=== PATIENT | male | born 1995 | race Caucasian/White ===

== ENCOUNTER 2018-09-12 17:17 | Inpatient (IN) | payer MEDICAID ==
[~2018-09-12] VITALS: Ht 180.3 cm; Wt 95.7 kg
[2018-09-12 17:27] VITALS: BP 138/100
--- NOTE | 2018-09-12 17:50 | NUR ---
PT PLACED IN WHEELCHAIR AND SEAT BELT APPLIED, AND ROLLED TO CHAIR C STATION
--- NOTE | 2018-09-12 18:12 | NUR ---
Patient transferred to bed 6 for further care. RN re-evaluating patient at bedside.
--- NOTE | 2018-09-12 18:35 | NUR ---
C/O ALCOHOL WITHDRAWAL. PT STATES THAT HE SPENT PREVIOUS 7 DAYS IN [facility] DRINKNG EVERYDAY, WHEN HE WOKE UP TODAY HE HAD TREMORS, ANXIETY, AND VISUAL HALLUCINATIONS, UNTIL HE DRANK AGAIN. LAST DRINK WAS 2 SHOTS OF VODKA 2 HOURS AGO. PT DENIES ANY PAIN, AGITATION, TREMORS, OR HALLUCINATIONS AT THIS TIME. PT DENIES DRUG USE. SINUS TACHYCARDIA, NO ECTOPIES PRESENT. DENIES CP/SOB AT THIS TIME. ABLE TO AMBULATE WITH STEADY GAIT. PLACED ON FULL MONITOR, BED LOCKED IN LOW POSITION, WILL CONTINUE TO MONITOR CLOSELY.
--- NOTE | 2018-09-12 19:22 | NUR ---
REPORT REC'D FROM ESMS RN
--- NOTE | 2018-09-12 19:50 | NUR ---
EDMD AT BEDSIDE
--- NOTE | 2018-09-12 19:54 | NUR ---
CIWA SCORED 5 POINTS, EDMD AWARE.
[2018-09-12] MEDS ORDERED: NACL 0.9% 1,000 ML IV ONE (19:55)
[2018-09-12] MEDS ORDERED: LORazepam 2 MG/ML VIAL IVP ONE (19:55)
--- NOTE | 2018-09-12 20:00 | NUR ---
PT REFUSING TO GIVE URINE AT THIS TIME EDMD AWARE
[2018-09-12 20:22] LABS: BASOPHILS % (AUTO) 0.9 % (0.0-2.0); EOSINOPHILS % (AUTO) 0.1 % (0.0-4.0); HEMATOCRIT 43.8 % (36-52); HEMOGLOBIN 15.1 g/dL (12.0-18.0); LYMPHOCYTES # (AUTO) 0.9 K/uL (2.0-11.5); LYMPHOCYTES % (AUTO) 16.6 % (20.5-51.1); MEAN CORPUSCULAR HEMOGLOBIN 31 pg (27-31); MEAN CORPUSCULAR HGB CONC 34 g/dL (33-37); MEAN CORPUSCULAR VOLUME 90.2 fL (80-94); MONOCYTES # (AUTO) 0.3 K/uL (0.8-1.0); NEUTROPHILS # (AUTO) 4.3 K/uL (1.8-7.7); NEUTROPHILS % (AUTO) 76.4 % (42.2-75.2); PLATELET COUNT (AUTO) 145 K/uL (140-450); RED BLOOD CELL COUNT(AUTO) 4.86 MIL/uL (4.20-6.10); RED CELL DISTRIBUTION WIDTH 13.8 % (11.6-13.7); WHITE BLOOD COUNT (AUTO) 5.6 K/uL (4.8-10.8)
--- NOTE | 2018-09-12 20:24 | NUR ---
pt states he feels much calmer after the ativan edmd made aware.
[2018-09-12 20:32] LABS: ANION GAP 15.5 (8-16); CREATININE 0.9 mg/dL (0.7-1.3); POTASSIUM 3.5 mmol/L (3.5-5.1)
[2018-09-12 20:39] LABS: ALBUMIN 3.5 g/dL (3.4-5.0); TOTAL BILIRUBIN 0.6 mg/dL (0.0-1.0)
--- NOTE | 2018-09-12 21:10 | NUR ---
PT AMBULATING TO RESTROOM
--- NOTE | 2018-09-12 21:52 | NUR ---
PT STILL UNABLE TO PROVIDE URINE, EDMD AWARE.
[2018-09-12] MEDS ORDERED: MULTIVITAMIN-12 10 ML in NACL 0.9% 1,000 ML IV ONE (23:22)
[2018-09-12] MEDS ORDERED: MAG SULF 2000 MG/WATER PREMIX 50 ML IV ONE (23:25)
[2018-09-12] MEDS ORDERED: DOCUSATE SODIUM 100 MG GELCAP PO PRN (23:25)
[2018-09-12] MEDS ORDERED: THIAMINE 200 MG/2 ML VIAL IM ONE (23:25)
[2018-09-12] MEDS ORDERED: chlordiazePOXIDE 25 MG CAP PO SCH (23:25)
[2018-09-12] MEDS ORDERED: ACETAMINOPHEN 325 MG TAB PO PRN (23:25)
[2018-09-12] MEDS ORDERED: FOLIC ACID 5 MG/ML SYR IM ONE (23:25)
[2018-09-12] MEDS ORDERED: ZOLPIDEM 5 MG TAB PO PRN (23:25)
[2018-09-12] MEDS ORDERED: THIAMINE 100 MG TAB PO STA (23:41)
[2018-09-12] MEDS ORDERED: chlordiazePOXIDE 25 MG CAP PO STA (23:44)
--- NOTE | 2018-09-12 23:50 | NUR ---
Patient arrived in unit via gurney, accompanied by two INFORMATICA MDM DEVELOPER's; patient is A/Ox4, able to make needs known. Patient was able to ambulate from gurney to bed without assistance; introduced self, updated board, oriented patient to room and hospital environment. Chief complaint of shaking and nausea x 1 day; DX is ETOH withdrawal. No SOB or distress noted, on room air. IV site on left forearm, 20 gauge, intact. Skin intact. Vitals signs upon admission are as follows: BP 143/87, RR 16, HR 110, Temp 98.6, O2Sat 97% on room air. Bed in the lowest position, call light within reach. Initial assessment done. Will continue to monitor.
[2018-09-13] VITALS: BP 143/87
--- NOTE | 2018-09-13 00:11 | NUR ---
Patient will be admitted to care of DR ONTIVEROS. Admited to [facility] Will go to room 126b Belongings list completed. Report to RICHARD JON
[2018-09-13] MEDS ORDERED: MULTIVITAMIN-12 10 ML in NACL 0.9% 1,000 ML IV ONE (00:28)
[2018-09-13] MEDS ORDERED: FOLIC ACID 5 MG/ML SYR IM ONE (00:30)
[2018-09-13] MEDS ORDERED: chlordiazePOXIDE 25 MG CAP PO SCH (00:30)
[2018-09-13] MEDS ORDERED: THIAMINE 200 MG/2 ML VIAL IM ONE (00:30)
[2018-09-13] MEDS ORDERED: MAG SULF 2000 MG/WATER PREMIX 50 ML IV ONE (00:30)
[2018-09-13] MEDS ORDERED: THIAMINE 100 MG TAB PO ONE (00:30)
[2018-09-13 00:34] LABS: MAGNESIUM 1.8 mg/dL (1.8-2.4); PHOSPHORUS 4.1 mg/dL (2.5-4.9); PROTHROMBIN TIME 9.9 secs (10.8-13.4); THYROID STIMULATING HORMONE 0.85 uIU/mL (0.34-3.74)
[2018-09-13] MEDS: NACL 0.9% 1,000 ML IV SCH ×3 (01:43→15:24)
[2018-09-13] MEDS ORDERED: MAG SULF 2000 MG/WATER PREMIX 50 ML IV SCH (02:00)
[2018-09-13] MEDS ORDERED: MULTIVITAMIN 1 TAB PO SCH (02:00)
[2018-09-13] MEDS ORDERED: FOLIC ACID 1 MG TAB PO SCH (02:00)
--- NOTE | 2018-09-13 02:00 | NUR ---
Checks made on patient; patient watching TV. No distress noted.
[2018-09-13] MEDS ORDERED: LORazepam 2 MG/ML VIAL IM/IVP SCH (02:15)
[2018-09-13] MEDS: ONDANSETRON 4 MG/2 ML VIAL IM/IVP PRN ×2 (03:35→12:24)
--- NOTE | 2018-09-13 03:40 | NUR ---
Patient vomited 400mL clear, yellow liquid. Administered PRN Zofran. Will continue to monitor.
[2018-09-13 04:00] VITALS: BP 146/91
[2018-09-13] MEDS: chlordiazePOXIDE 25 MG CAP PO SCH ×3 (04:50→20:36)
--- NOTE | 2018-09-13 06:13 | NUR ---
Checked on patient; patient vomited 50mL clear liquid. Asked patient if he was ok, patient stated he felt better after vomiting. Will continue to monitor.
--- NOTE | 2018-09-13 07:05 | NUR ---
Endorsed patient to AM shift RN for continuity of care; patient in stable condition.
--- NOTE | 2018-09-13 07:06 | NUR ---
PT IS AWAKE AND ORIENTED. PT IS STILL VERY SHAKY. STILL NAUSEATED. CAN'T KEEP ANYTHING DOWN. DURING THE FREIGHT TRAFFIC CONSULTANT OVER 1000ML EMESIS. PT IS BEDREST, UNSTEADY GAIT D/T THE SHAKES. SKIN INTACT. LBM 09/11. IV ON L FA 20G NS AT 120ML/HR. PLAN FOR TODAY: KEEP PT SAFE, FREE OF FALLS, NO SEIZURES. KEEP HYDRATED AND NO MORE VOMITING.
[2018-09-13 08:00] VITALS: BP 160/97
--- NOTE | 2018-09-13 08:39 | NUR ---
PATIENT HAS BEEN SCREENED AND CATEGORIZED MODERATE NUTRITION RISK. PATIENT WILL BE SEEN WITHIN 3-5 DAYS OF ADMISSION. 09/15/18-09/17/[address]
--- NOTE | 2018-09-13 08:55 | NUR ---
ADMINISTERED BANANA BAG. PT TOLERATING WELL. WILL CONTINUE MONITOR PT.
[2018-09-13] MEDS ORDERED: MULTIVITAMIN/MINERALS 1 TAB PO SCH (09:00)
[2018-09-13] MEDS ORDERED: MULTIVITAMIN-12 10 ML, THIAMINE 100 MG, MAGNESIUM SULFATE 50% 2,000 MG, FOLIC ACID 1 MG... IV SCH ×5 (09:00)
[2018-09-13 09:20] LABS: BASOPHILS # (AUTO) 0.1 K/uL (0.00-0.22); BASOPHILS % (AUTO) 0.9 % (0.0-2.0); HEMATOCRIT 40.3 % (36-52); HEMOGLOBIN 13.8 g/dL (12.0-18.0); LYMPHOCYTES # (AUTO) 0.4 K/uL (2.0-11.5); MEAN CORPUSCULAR HEMOGLOBIN 31 pg (27-31); MEAN CORPUSCULAR HGB CONC 34 g/dL (33-37); MEAN CORPUSCULAR VOLUME 90.5 fL (80-94); MONOCYTES # (AUTO) 0.6 K/uL (0.8-1.0); MONOCYTES % (AUTO) 8.7 % (1.7-9.3); NEUTROPHILS # (AUTO) 6.2 K/uL (1.8-7.7); NEUTROPHILS % (AUTO) 84.4 % (42.2-75.2); PLATELET COUNT (AUTO) 128 K/uL (140-450); RED BLOOD CELL COUNT(AUTO) 4.46 MIL/uL (4.20-6.10); RED CELL DISTRIBUTION WIDTH 13.3 % (11.6-13.7); WHITE BLOOD COUNT (AUTO) 7.3 K/uL (4.8-10.8)
[2018-09-13 09:41] LABS: ANION GAP 15.9 (8-16); CARBON DIOXIDE 25.8 mmol/L (21-32); CREATININE 0.8 mg/dL (0.7-1.3); POTASSIUM 3.7 mmol/L (3.5-5.1)
[2018-09-13 09:52] LABS: CHOL/HDL RATIO 1.9 (1-4.5); MAGNESIUM 1.8 mg/dL (1.8-2.4); PHOSPHORUS 3.7 mg/dL (2.5-4.9)
[2018-09-13 12:00] VITALS: BP 149/106
--- NOTE | 2018-09-13 12:30 | NUR ---
ADMINISTERED LIBRIUM. PT TOLERATED WELL. EATING LUNCH. ADMINISTERED ZOFRAN 30 MIN PRIOR TO HELP WITH NAUSEA.
[2018-09-13 13:45] LABS: APPEARANCE,URINE CLEAR (CLEAR); BILIRUBIN,URINE 1+ (NEGATIVE); BLOOD, URINE TRACE-I (NEGATIVE); COLOR,URINE DARK YELLOW (YELLOW); LEUKOCYTE ESTERASE ,URINE NEGATIVE (NEGATIVE); NITRITE, URINE NEGATIVE (NEGATIVE); PH,URINE 6.5 (5.0-9.0); UGLUCOSE NEGATIVE (NEGATIVE)
[2018-09-13 13:50] LABS: BARBITURATE, URINE NEG. ng/ml (NEG <=200); BENZODIAZEPINE, URINE NEG. ng/mL (NEG <=200); CANNABINOID, URINE POS. ng/mL (NEG <=50); COCAINE, URINE POS. ng/mL (NEG <=300); OPIATE, URINE NEG. ng/mL (NEG <=2000); PHENCYCLIDINE SCREEN,URINE NEG. ng/mL (NEG <=25)
[2018-09-13 13:56] LABS: WBC,URINE 0-5 /HPF (0-5)
--- NOTE | 2018-09-13 15:20 | NUR ---
PT BETTER WITH SHAKING. PER PT, SEEING HALLUCINATIONS. WILL NOTIFY .
[2018-09-13 16:00] VITALS: BP 147/104
[2018-09-13] MEDS ORDERED: LORazepam 1 MG TAB PO ONE (18:05)
--- NOTE | 2018-09-13 19:13 | NUR ---
ENDORSED PT TO THE MEASUREMENT SUPERVISOR NURSE AT BEDSIDE FOR CONTINUITY OF CARE. PT IS IN STABLE CONDITION.
--- NOTE | 2018-09-13 19:15 | NUR ---
RECEIVED PT FROM LORAINE JON PT DX ETOH AAOX4 VERBALIZED NEEDED ON BED REST USING URINAL , ON TELEMETRY SR DENIES ANY PAIN AT THIS TIME IV ON LEFT ARM INFUSING WELL INITIAL ASSESSMENT DONE
[2018-09-13 20:00] VITALS: BP 138/98
--- NOTE | 2018-09-13 21:30 | NUR ---
PT RESTING ON BED DENIES ANY PAIN ON TELEMETRY SR, NOT DISTRESS NOTED
[2018-09-13] MEDS ORDERED: LORazepam 1 MG TAB PO SCH (22:00)
[2018-09-13] MEDS ORDERED: LACTULOSE 20 GM/30 ML UDC PO SCH (22:00)
--- NOTE | 2018-09-13 23:31 | NUR ---
PT SLEEPING WELL AFTER ATIVAN GIVEN NOT DISTRESS NOTED ON TELEMETRY SR
[2018-09-14] VITALS: BP 133/91
[2018-09-14] MEDS: NACL 0.9% 1,000 ML IV SCH ×3 (00:22→17:02)
--- NOTE | 2018-09-14 01:00 | NUR ---
PT ON TELEMETRY SR, NOT DISTRESS NOTED IV ON LEFT ARM INFUSING WELL DENIES ANY PAIN
[2018-09-14 04:00] VITALS: BP 138/97
--- NOTE | 2018-09-14 04:00 | NUR ---
DERICK CHANGED VOIDING WELL ON TELE SR PT VERBALIZED TO FEEL BETTER
[2018-09-14] MEDS: chlordiazePOXIDE 25 MG CAP PO SCH ×3 (05:40→20:40)
--- NOTE | 2018-09-14 06:17 | NUR ---
AFTER LIBRIUM GIVEN PT IS SLEEPING WELL NOT DISTRESS NOTED ON TELEMETRY SR . PT WILL BE ENDORSED TO DAY SHIFT NURSE FOR CONTINUITY OF CARE
[2018-09-14 06:28] LABS: BASOPHILS # (AUTO) 0.1 K/uL (0.00-0.22); EOSINOPHILS # (AUTO) 0.1 K/uL (0-0.4); EOSINOPHILS % (AUTO) 1.2 % (0.0-4.0); HEMATOCRIT 39.6 % (36-52); HEMOGLOBIN 13.5 g/dL (12.0-18.0); LYMPHOCYTES % (AUTO) 17.7 % (20.5-51.1); MEAN CORPUSCULAR HEMOGLOBIN 31 pg (27-31); MEAN CORPUSCULAR HGB CONC 34 g/dL (33-37); MEAN CORPUSCULAR VOLUME 91.4 fL (80-94); MONOCYTES # (AUTO) 0.5 K/uL (0.8-1.0); MONOCYTES % (AUTO) 9.5 % (1.7-9.3); NEUTROPHILS # (AUTO) 3.9 K/uL (1.8-7.7); NEUTROPHILS % (AUTO) 70.6 % (42.2-75.2); PLATELET COUNT (AUTO) 107 K/uL (140-450); RED BLOOD CELL COUNT(AUTO) 4.34 MIL/uL (4.20-6.10); RED CELL DISTRIBUTION WIDTH 13.1 % (11.6-13.7); WHITE BLOOD COUNT (AUTO) 5.5 K/uL (4.8-10.8)
[2018-09-14 06:32] LABS: ANION GAP 11.1 (8-16); CARBON DIOXIDE 29.4 mmol/L (21-32); CREATININE 0.8 mg/dL (0.7-1.3); POTASSIUM 3.5 mmol/L (3.5-5.1)
[2018-09-14 06:36] LABS: MAGNESIUM 2.1 mg/dL (1.8-2.4); PHOSPHORUS 3.3 mg/dL (2.5-4.9)
[2018-09-14 06:38] LABS: ALBUMIN 3.1 g/dL (3.4-5.0); BILIRUBIN,DIRECT 0.6 mg/dL (0.0-0.3); TOTAL BILIRUBIN 1.6 mg/dL (0.0-1.0)
--- NOTE | 2018-09-14 07:00 | NUR ---
RECEIVED BEDSIDE REPORT FROM RAIL CAR DRIVER NURSE. PATIENT IS AWAKE, ALERT AND ORIENTEDX4. NO SIGNS OF DISTRESS ON RA. SKIN IS INTACT. PATIENT HAS WEAKNESS, AMBULATE W ASSIST. FALL RISK PROTOCOL IN PLACE. TELE MONITOR IN PLACE. IV ON L FA 20G INFUSING NS AT 120. CLEAN,DRY AND INTACT. PATIENT ABLE TO MAKE NEEDS KNOWN. SEIZURE PRECAUTIONS. BED IN LOW POSITION. CALL LIGHT WITHIN REACH
[2018-09-14 08:00] VITALS: BP 137/96
[2018-09-14 08:08] LABS: T4 (THYROXINE) 6.5 ug/dL (4.5-12.0)
--- NOTE | 2018-09-14 09:41 | NUR ---
ASKED DR MONAHAN WHY PATIENT IS NPO NOW. SHE SAID SHE WILL ASK DR BURGESS AND THEY WILL LET ME KNOW. PATIENT SAYS ITS OK BECAUSE HE IS NOT REALLY HUNGRY AT THIS TIME
[2018-09-14] MEDS: ATORVASTATIN 20 MG TAB PO SCH (09:48)
[2018-09-14] MEDS ORDERED: MULTIVITAMIN-12 10 ML, THIAMINE 100 MG, MAGNESIUM SULFATE 50% 2,000 MG, FOLIC ACID 1 MG... IV SCH ×5 (10:00)
--- NOTE | 2018-09-14 10:04 | NUR ---
ADMINISTERED MEDS. PATIENT TOLERATED WELL. EDUCATED ON SIDE EFFECTS. PATIENT WANTS TO SHOWER. PATIENT STOOD UP W ASSISTANCE AND TOO UNSTEADY TO SHOWER. GAVE HIM BED BATH SUPPLIES. STUDENT NURSE WILL CHANGE LINENS WHEN PATIENT IS DONE. PATIENT SAID HE WILL NOT GET UP W ASSISTANCE AND WILL CALL WHEN HE IS DONE
--- NOTE | 2018-09-14 11:00 | NUR ---
PATIENT FEELING BETTER AFTER A BED BATH. PATIENT ATTEMPTING TO EAT AT THIS TIME. WILL CONTINUE TO MONITOR THE PATIENT
[2018-09-14 12:00] VITALS: BP 149/99
--- NOTE | 2018-09-14 13:07 | NUR ---
ADMINISTERED [facility] MED. PATIENT EDUCATED ON SIDE EFFECTS. TOLERATED WELL. WILL CONTINUE TO MONITOR THE PATIENT. TELE MONITOR REMOVED PER ORDER FOR TRANSFER TO [facility]
--- NOTE | 2018-09-14 14:36 | NUR ---
PATIENT SITTING IN BED WATCHING TV. NO SIGNS OF DISTRESS. WILL CONTINUE TO MONITOR THE PATIENT.
[2018-09-14 16:00] VITALS: BP 143/92
--- NOTE | 2018-09-14 16:50 | NUR ---
PATIENT IS WATCHING TV. NO SIGNS OF DISTRESS. WILL CONTINUE TO MONITOR THE PATIENT.
--- NOTE | 2018-09-14 17:28 | NUR ---
PATIENT IS TAKING A SHOWER. IV COVERED. WILL CONTINUE TO MONITOR THE PATIENT
--- NOTE | 2018-09-14 19:00 | NUR ---
IV NOT WORKING. REMOVED, TIP INTACT. NEW IV PLACED ON L HAND 22G
--- NOTE | 2018-09-14 19:17 | NUR ---
GAVE BEDSIDE REPORT TO ANIMAL PATHOLOGIST NURSE. PATIENT ENDORSED IN STABLE CONDITION
--- NOTE | 2018-09-14 19:18 | NUR ---
RECD. RESTING IN BED, AWAKE, A/OX4. WATCHING TV. RESPIRATION EVEN AND UNLABORED. BANANA BAG INFUSING AT 100 ML/HR, LEFT FOREARM G20. NOT FEELING NAUSEATED, STATED FEELING MUCH BETTER. PLAN OF CARE FOR THE SHIFT DISCUSSED. VERBALIZED UNDERSTANDING. DENIES PAIN 0/10.
[2018-09-14 20:00] VITALS: BP 130/86
--- NOTE | 2018-09-14 20:40 | NUR ---
WANT TO SLEEP EARLY, UNABLE TO SLEEP MUCH LAST NIGHT. MEDICATED WITH AMBIEN 5 MG. PO ORDERED.
--- NOTE | 2018-09-14 21:40 | NUR ---
STILL AWAKE WATCHING TV.
--- NOTE | 2018-09-14 22:30 | NUR ---
SLEEPING COMFORTABLY IN BED.
--- NOTE | 2018-09-14 23:24 | NUR ---
Patient's Plan of Care was discussed and reviewed with FLOYD: CARLOS
[2018-09-15] VITALS: BP 128/84
--- NOTE | 2018-09-15 00:30 | NUR ---
AWAKE, WANTS ANOTHER SLEEPING PILL, UNABLE TO SLEEP STRAIGHT. WILL INFORM .
--- NOTE | 2018-09-15 01:00 | NUR ---
DR. MCLAUGHLIN INFORMED PATIENT WANTS ANOTHER SLEEPING PILL. DID NOT ORDER ANOTHER PILL.
[2018-09-15] MEDS: NACL 0.9% 1,000 ML IV SCH ×2 (01:35→09:42)
--- NOTE | 2018-09-15 01:35 | NUR ---
PATIENT RESTING COMFORTABLY SLEEPING IN BED.
[2018-09-15] MEDS: chlordiazePOXIDE 25 MG CAP PO SCH ×2 (04:45→12:12)
--- NOTE | 2018-09-15 04:45 | NUR ---
MEDICATED WITH LIBRIUM ORDERED. DENIES PAIN 0/10.
--- NOTE | 2018-09-15 06:40 | NUR ---
RESTING COMFORTABLY IN BED, VERBALIZED EAGERNESS TO GO HOME TODAY. CONDITION REMAIN STABLE. IMPROVEMENT NOTED IN PATIENT'S GAIT, STEADY. WILL ENDORSE TO AM NURSE FOR CONTINUITY OF CARE.
--- NOTE | 2018-09-15 07:05 | NUR ---
ENDORSED TO AM SHIFT NURSE FOR CONTINUITY OF CARE.
--- NOTE | 2018-09-15 07:10 | NUR ---
RECEIVED PT FROM PRECISION ASSEMBLER BENCH NURSECARLOS, PT IS AWAKE AND LYING ON THE BED, AOX4, CONVERSANT, PT HAS AN IV LINE ON THE ;EFT HAND G. 22 WITH NS INFUSING AT 120ML/HR, PT DENIES PAIN AND NO SIGN OF DISTRESS NOTED. WILL MONITOR PT.
[2018-09-15 07:28] LABS: ANION GAP 12.3 (8-16); CARBON DIOXIDE 27.9 mmol/L (21-32); CREATININE 0.8 mg/dL (0.7-1.3); POTASSIUM 4.2 mmol/L (3.5-5.1)
[2018-09-15 07:32] LABS: BASOPHILS # (AUTO) 0.1 K/uL (0.00-0.22); BASOPHILS % (AUTO) 0.7 % (0.0-2.0); EOSINOPHILS # (AUTO) 0.1 K/uL (0-0.4); EOSINOPHILS % (AUTO) 1.4 % (0.0-4.0); HEMATOCRIT 41.2 % (36-52); LYMPHOCYTES # (AUTO) 1.2 K/uL (2.0-11.5); LYMPHOCYTES % (AUTO) 14.3 % (20.5-51.1); MEAN CORPUSCULAR HEMOGLOBIN 31 pg (27-31); MEAN CORPUSCULAR HGB CONC 34 g/dL (33-37); MONOCYTES # (AUTO) 0.7 K/uL (0.8-1.0); MONOCYTES % (AUTO) 7.9 % (1.7-9.3); NEUTROPHILS # (AUTO) 6.3 K/uL (1.8-7.7); NEUTROPHILS % (AUTO) 75.7 % (42.2-75.2); PLATELET COUNT (AUTO) 122 K/uL (140-450); RED BLOOD CELL COUNT(AUTO) 4.48 MIL/uL (4.20-6.10); RED CELL DISTRIBUTION WIDTH 12.8 % (11.6-13.7); WHITE BLOOD COUNT (AUTO) 8.3 K/uL (4.8-10.8)
--- NOTE | 2018-09-15 07:40 | NUR ---
PT IS AWAKE AND SEATED ON THE BED, SIDE RAILS ARE UP AND CALL LIGHT WITHIN REACH, VITAL SIGNS TAKEN, BP IS 131/91, PULSE IS 71, O2 SATURATION IS 96%, TEMPERATURE IS 98.9 AND RESPIRATION IS 18/MIN, PT AMBULATED TO THE BATHROOM, STEADY GAIT. NO SIGN OF DISTRESS NOTED AND WILL MONITOR PT.
[2018-09-15 07:42] LABS: MAGNESIUM 2.2 mg/dL (1.8-2.4)
[2018-09-15 08:00] VITALS: BP 131/91
--- NOTE | 2018-09-15 08:01 | NUR ---
PT'S IVF'S RATE WAS DECREASED TO 60ML/HR, PER MD ORDER.
--- NOTE | 2018-09-15 08:05 | NUR ---
DR. OLVERA AND THE RESIDENT DOCTORS CAME TO THE PT'S ROOM AND SPOKE TO PT, PT IS FOR POSSIBLE DISCHARGE TODAY TO FOLLOW UP OUTPATIENT WITH PCP.
[2018-09-15] MEDS: ATORVASTATIN 20 MG TAB PO SCH (08:55)
--- NOTE | 2018-09-15 08:56 | NUR ---
PT IS AWAKE AND IS EATING HIS BREAKFAST, ORAL MEDICATION WAS GIVEN AND PT TOLERATED IT. WILL MONITOR PT.
--- NOTE | 2018-09-15 12:13 | NUR ---
PT IS AWAKE AND VITAL SIGNS CHECKED DONE AND BP IS 128/85, PULSE IS 91, O2 SATURATION IS 97% AND TEMPERATURE IS 98.3, ORAL MEDICATION GIVEN AND NO SIGN OF DISTRESS NOTED AND WILL MONITOR PT.
--- NOTE | 2018-09-15 15:10 | NUR ---
DISCHARGED PT, AMBULATED TO THE LOBBY, DISCHARGED INSTRUCTIONS AND TEACHINGS GIVEN AND PT VERBALIZED UNDERSTANDING. IV LINE AND ARM BAND REMOVED AND PT IS STABLE AT THIS TIME.
== END 2018-09-15 15:10 | disposition home or self-care (01) | DRG 775 ==
LOC: MED 17:17 → MMU 23:22
PROVIDERS: ADMIT General Practice; ATTEND General Practice
DX: F10.129 Alcohol abuse with intoxication, unspecified (principal); G92 Toxic encephalopathy; K72.90 Hepatic failure, unspecified without coma; Y90.8 Blood alcohol level of 240 mg/100 ml or more; E78.5 Hyperlipidemia, unspecified; F19.10 Other psychoactive substance abuse, uncomplicated
CPT/HCPCS: 36415; 71045; 76705; 80048; 80053; 80076; 80305; 81001; 82140; 83036; 83690; 83735; 83880; 84100; 84134; 84436; 84443; 84484; 85025; 85610; 85730; 87081; 93005; 96361; 96374; 99285; A9153; G0482; J2060; J2405; J3411; J3475; J3490; J7030; Q0092

== ENCOUNTER 2018-09-30 14:04 | Emergency (ER) | payer MEDICAID ==
[~2018-09-30] VITALS: Ht 180.3 cm; Wt 94.3 kg
[2018-09-30 14:06] VITALS: BP 144/90
--- NOTE | 2018-09-30 14:20 | NUR ---
PATIENT AMBULATED TO BED 3
--- NOTE | 2018-09-30 14:30 | NUR ---
PT BIB SELF FOR N/V. PT STATES HE WAS ADMITTED TO HOSPITAL IN AUGUST FOR ALCOHOL WITHDRAWL AND HAS BEEN DRINKING SINCE HE WAS D/C. PT STATES HE HAS TO DRINK TO EAT OR FEELS NAUSOUS. PT STATES HE WANTS TO QUIT TO DRINKING AND WISHES TO BE ADMITTED AGAIN SO HE MAY BEGIN THE PROCESS. NO N/V SINCE ARRIVAL IN ER. PT IS AWAKE AND ALERT.
[2018-09-30] MEDS ORDERED: NACL 0.9% 1,000 ML IV SCH (14:38)
[2018-09-30] MEDS ORDERED: LORazepam 2 MG/ML VIAL IVP ONE (14:40)
[2018-09-30] MEDS ORDERED: ONDANSETRON 4 MG/2 ML VIAL IVP ONE (14:40)
[2018-09-30 15:00] LABS: BASOPHILS # (AUTO) 0.1 K/uL (0.00-0.22); BASOPHILS % (AUTO) 2.1 % (0.0-2.0); EOSINOPHILS % (AUTO) 0.3 % (0.0-4.0); HEMATOCRIT 47.3 % (36-52); HEMOGLOBIN 16.5 g/dL (12.0-18.0); LYMPHOCYTES # (AUTO) 1.7 K/uL (2.0-11.5); LYMPHOCYTES % (AUTO) 28.2 % (20.5-51.1); MEAN CORPUSCULAR HEMOGLOBIN 32 pg (27-31); MEAN CORPUSCULAR HGB CONC 35 g/dL (33-37); MEAN CORPUSCULAR VOLUME 90.4 fL (80-94); MONOCYTES # (AUTO) 0.6 K/uL (0.8-1.0); MONOCYTES % (AUTO) 9.3 % (1.7-9.3); NEUTROPHILS # (AUTO) 3.6 K/uL (1.8-7.7); NEUTROPHILS % (AUTO) 60.1 % (42.2-75.2); PLATELET COUNT (AUTO) 296 K/uL (140-450); RED BLOOD CELL COUNT(AUTO) 5.24 MIL/uL (4.20-6.10); RED CELL DISTRIBUTION WIDTH 13.2 % (11.6-13.7); WHITE BLOOD COUNT (AUTO) 5.9 K/uL (4.8-10.8)
[2018-09-30 15:07] LABS: ANION GAP 12.4 (8-16); CARBON DIOXIDE 31.4 mmol/L (21-32); POTASSIUM 3.8 mmol/L (3.5-5.1)
[2018-09-30 15:13] LABS: ALBUMIN 3.8 g/dL (3.4-5.0); TOTAL BILIRUBIN 0.7 mg/dL (0.0-1.0)
--- NOTE | 2018-09-30 16:19 | NUR ---
DPatient discharged with v/s stable. Written and verbal after care instructions given and explained. Patient alert, oriented and verbalized understanding of instructions. Ambulatory with steady gait. All questions addressed prior to discharge. ID band removed. Patient advised to follow up with PMD. Rx of ZOFRAN, ATIVAN given. Patient educated on indication of medication including possible reaction and side effects. Opportunity to ask questions provided and answered.
[2018-09-30 16:20] VITALS: BP 145/87
== END 2018-09-30 16:19 | disposition home or self-care (01) ==
LOC: MED 14:04
DX: F10.239 Alcohol dependence with withdrawal, unspecified (principal); R74.0 Nonspecific elevation of levels of transaminase and lactic acid dehydrogenase [LDH]; Y90.8 Blood alcohol level of 240 mg/100 ml or more
CPT/HCPCS: 36415; 80053; 83690; 85025; 96374; 96375; 99283; G0482; J2060; J2405; J7030

== ENCOUNTER 2018-10-02 22:56 | Emergency (ER) | payer MEDICAID ==
[~2018-10-02] VITALS: Ht 180.3 cm; Wt 94.8 kg
[2018-10-02 22:59] VITALS: BP 145/77
--- NOTE | 2018-10-02 22:59 | NUR ---
TO BED # 04 AMBULATORY
--- NOTE | 2018-10-02 23:10 | NUR ---
BIB FAMILY WITH REPORTS OF HITTING HEAD ON TABLE STAFF CERTIFIED NURSE MIDWIFE, 2CM LAC TO LEFT EYEBROW, BLEEDING CONTROLLED. REPORTS ETOH USE. STATES NO LOC, OR N/V. PUPILS EQUAL AND REACTIVE TO LIGHT. ANSWERING QUESTIONS APPROPRIATLY. ERMD AWARE
--- NOTE | 2018-10-02 23:15 | NUR ---
DR. SILVA BEDSIDE EVALUATING PT
[2018-10-02] MEDS ORDERED: LIDOCAINE 1% 500 MG/50 ML VIAL INJ SCH (23:25)
[2018-10-02] MEDS ORDERED: LIDOCAINE MPF 1% - 5 mL VIAL 5 ML ONE (23:36)
[2018-10-02] MEDS ORDERED: MULTIVITAMIN-12 10 ML, THIAMINE 100 MG, MAGNESIUM SULFATE 50% 2,000 MG, FOLIC ACID 1 MG... IV ONE ×5 (23:50)
[2018-10-03] MEDS ORDERED: THIAMINE 200 MG/2 ML VIAL ONE (00:04)
[2018-10-03] MEDS ORDERED: FOLIC ACID 5 MG/ML SYR ONE (00:04)
[2018-10-03] MEDS ORDERED: MULTIVITAMIN-12 10 ML VIAL IV ONE (00:04)
[2018-10-03] MEDS ORDERED: MAG SULF 2000 MG/WATER PREMIX 50 ML IV ONE (00:14)
--- NOTE | 2018-10-03 00:20 | NUR ---
BANANA BAG GIVEN PER PROTOCOL. THIAMINE GIVEN IM IN LEFT DELTOID, MAG RIDER HUNG RUNNING AT 25ML/HR IN LAC. FOLIC ACID AND MULITVITAMIN IN 1000ML NS RUNNING TO GRAVITY IN LAC.
[2018-10-03 01:27] VITALS: BP 138/76
--- NOTE | 2018-10-03 01:28 | NUR ---
Patient discharged with v/s stable. Written and verbal after care instructions given and explained. Patient alert, oriented and verbalized understanding of instructions. Ambulatory with steady gait. All questions addressed prior to discharge. ID band removed. Patient advised to follow up with PMD. Rx of LIBRIUM given. Patient educated on indication of medication including possible reaction and side effects. Opportunity to ask questions provided and answered.
== END 2018-10-03 01:28 | disposition home or self-care (01) ==
LOC: MED 22:56
DX: S01.112A Laceration without foreign body of left eyelid and periocular area, initial encounter (principal); F10.10 Alcohol abuse, uncomplicated; Y90.9 Presence of alcohol in blood, level not specified; W06.XXXA Fall from bed, initial encounter; Y93.89 Activity, other specified; Y92.098 Other place in other non-institutional residence as the place of occurrence of the external cause; Y99.8 Other external cause status
CPT/HCPCS: 12011; 96365; 99283; A9153; J2001; J3411; J3475; J3490

== ENCOUNTER 2018-10-24 18:29 | Emergency (ER) | payer MEDICAID ==
[~2018-10-24] VITALS: Ht 180.3 cm; Wt 92.2 kg
[2018-10-24 18:34] VITALS: BP 128/95
--- NOTE | 2018-10-24 19:11 | NUR ---
pt. ambulated to bed 1
[2018-10-24] MEDS ORDERED: MULTIVITAMIN-12 10 ML in NACL 0.9% 1,000 ML IV ONE (19:28)
[2018-10-24] MEDS ORDERED: THIAMINE 200 MG/2 ML VIAL IM ONE (19:30)
[2018-10-24] MEDS ORDERED: FOLIC ACID 5 MG/ML SYR IM ONE (19:30)
[2018-10-24] MEDS ORDERED: MAG SULF 2000 MG/WATER PREMIX 50 ML IV ONE (19:30)
[2018-10-24] MEDS ORDERED: ONDANSETRON 4 MG/2 ML VIAL IVP ONE (19:30)
[2018-10-24] MEDS ORDERED: LORazepam 2 MG/ML VIAL IVP ONE (19:30)
--- NOTE | 2018-10-24 20:00 | NUR ---
C/O ALCOHOL WITHDRAWL STARTING AROUND 6AM THIS MORNING. PT REPORTS BINGE DRINKING 1-2 750ML BOTTLES OF VODKA PER DAY. PT REPORTS HALLUCINATIONS AND TREMORS AT HOME, SO HE DRANK 2 SHOTS OF VODKA TO RELAX HIMSELF. PT STATES HE WANTS TO WITHDRAWL COMPLETELY BUT NEEDS HELP. REPORTS N/V AT HOME, HAS NOT HAD ANY EPISODES HERE. PT ALERT AND SPEAKING IN COMPLETE SENTENCES, ANSWERING QUESTIONS APPROPRIATELY. SKIN IS NFE, WARM AND DRY. PT AMBULATORY WITH STEADY GAIT. PT APPEARS TO BE ANXIOUS. VSS AT THIS TIME, SEIZURE PRECAUTIONS IN PLACE. SIDE RAILS UP X2, BED IN LOW POSITION, LIGHTS DIMMED FOR PT COMFORT. PT PLACED IN GOWN AND ON BEDSIDE TONGUE TRIMMER AT THIS TIME.
--- NOTE | 2018-10-24 20:00 | NUR ---
GAVE PT A URINAL AT BEDSIDE
[2018-10-24] MEDS ORDERED: MULTIVITAMIN-12 10 ML VIAL IV ONE ×2 (20:07→21:18)
--- NOTE | 2018-10-24 20:30 | NUR ---
DELAY IN [facility] ADMINISTRATION, WAITING FOR ON-CALL PHARMACISTS.
--- NOTE | 2018-10-24 20:46 | NUR ---
PT ENCOURAGED TO PROVIDED URINE, PT STATES HE WILL TRY.
--- NOTE | 2018-10-24 21:00 | NUR ---
PT ACTING APPROPRIATLY, SPEAKING IN CLEAR AND COMPLETE SENTENCES. PT STATES WHEN HE CLOSES HIS EYES HE SEES CLOWNS AND BEARS W/ SHARP TEETH, PT STATES HE HAS A BED AT A REHAB FACILITY, WAS TOLD TO GO DETOX AT A HOSPITAL AND THEN THE FACILITY WILL ACCEPT HIM IN 2 WEEKS. NO SIGNS OF DISTRESS, BREATHING EQUAL AND UNLABORED.
[2018-10-24 21:46] LABS: APPEARANCE,URINE CLEAR (CLEAR); BILIRUBIN,URINE 2+ (NEGATIVE); BLOOD, URINE NEGATIVE (NEGATIVE); COLOR,URINE AMBER (YELLOW); LEUKOCYTE ESTERASE ,URINE NEGATIVE (NEGATIVE); NITRITE, URINE NEGATIVE (NEGATIVE); UGLUCOSE NEGATIVE (NEGATIVE)
[2018-10-24 22:03] LABS: BARBITURATE, URINE NEG. ng/ml (NEG <=200); BENZODIAZEPINE, URINE POS. ng/mL (NEG <=200); CANNABINOID, URINE POS. ng/mL (NEG <=50); COCAINE, URINE NEG. ng/mL (NEG <=300); OPIATE, URINE NEG. ng/mL (NEG <=2000); PHENCYCLIDINE SCREEN,URINE NEG. ng/mL (NEG <=25)
--- NOTE | 2018-10-24 23:00 | NUR ---
PT AOX4, AMBULATORY WITH STEADY GAIT, TO BE PICKED UP BY PT'S MOTHER
[2018-10-24 23:05] VITALS: BP 110/76
--- NOTE | 2018-10-24 23:06 | NUR ---
Patient discharged with v/s stable. Written and verbal after care instructions given and explained. Patient alert, oriented and verbalized understanding of instructions. Ambulatory with steady gait. All questions addressed prior to discharge. ID band removed. Patient advised to follow up with PMD. Rx of ATIVAN, ZOFRAN given. Patient educated on indication of medication including possible reaction and side effects. Opportunity to ask questions provided and answered.
== END 2018-10-24 23:06 | disposition home or self-care (01) ==
LOC: MED 18:29
DX: F10.20 Alcohol dependence, uncomplicated (principal); Y90.8 Blood alcohol level of 240 mg/100 ml or more
CPT/HCPCS: 36415; 80305; 81003; 93005; 96365; 96366; 96368; 96372; 96375; 99283; A9153; G0482; J2060; J2405; J3411; J3475; J3490; 99284

== ENCOUNTER 2018-10-25 18:26 | Inpatient (IN) | payer MEDICAID ==
[~2018-10-25] VITALS: Ht 180.3 cm; Wt 94.3 kg
[2018-10-25 18:40] VITALS: BP 148/94
--- NOTE | 2018-10-25 20:42 | NUR ---
PT AMBULATED TO ER BED 11
--- NOTE | 2018-10-25 20:42 | NUR ---
23 Y/O MALE C/O ALCOHOL WITHDRAWL. STATES HE HAS A PLACE IN REHAB IN [facility] IN TWO WEEKS. HE HAS COME FOR MEDICATION REFILL FOR ATIVAN AND LIBRIUM. HR 130. ALSO C/O N/V X1. STATES LAST TIME CONSUMING ALCOHOL ON 10/24. ER AWARE. CONTINUE TO MONITOR.
[2018-10-25] MEDS ORDERED: NACL 0.9% 1,000 ML IV ONE (21:00)
[2018-10-25] MEDS ORDERED: LORazepam 2 MG/ML VIAL IVP ONE (21:00)
[2018-10-25] MEDS ORDERED: ONDANSETRON 4 MG/2 ML VIAL IVP ONE (21:10)
[2018-10-25 21:47] LABS: BASOPHILS # (AUTO) 0.1 K/uL (0.00-0.22); HEMATOCRIT 42.7 % (36-52); HEMOGLOBIN 14.5 g/dL (12.0-18.0); LYMPHOCYTES # (AUTO) 1.4 K/uL (2.0-11.5); LYMPHOCYTES % (AUTO) 21.8 % (20.5-51.1); MEAN CORPUSCULAR HEMOGLOBIN 33 pg (27-31); MEAN CORPUSCULAR HGB CONC 34 g/dL (33-37); MONOCYTES # (AUTO) 0.5 K/uL (0.8-1.0); MONOCYTES % (AUTO) 7.3 % (1.7-9.3); NEUTROPHILS # (AUTO) 4.4 K/uL (1.8-7.7); NEUTROPHILS % (AUTO) 69.9 % (42.2-75.2); PLATELET COUNT (AUTO) 125 K/uL (140-450); RED BLOOD CELL COUNT(AUTO) 4.36 MIL/uL (4.20-6.10); RED CELL DISTRIBUTION WIDTH 15.1 % (11.6-13.7); WHITE BLOOD COUNT (AUTO) 6.4 K/uL (4.8-10.8)
[2018-10-25 22:15] LABS: ALBUMIN 2.9 g/dL (3.4-5.0); ANION GAP 21.1 (8-16); CARBON DIOXIDE 20.9 mmol/L (21-32); CREATININE 1.1 mg/dL (0.7-1.3); TOTAL BILIRUBIN 6.4 mg/dL (0.0-1.0)
--- NOTE | 2018-10-25 22:19 | NUR ---
PT TAKEN TO CT
--- NOTE | 2018-10-25 23:00 | NUR ---
PT IN BED RESTING WITH EYES OPEN. NO C/O PAIN. PT STATES NAUSEA AND ANXIETY SUBSIDED AND FEELING BETTER. ER MD AWARE. CONTINUE TO MONITOR.
[2018-10-25] MEDS ORDERED: MORPHINE SULFATE 2 MG/ML SYR IVP PRN (23:20)
[2018-10-25] MEDS ORDERED: LORazepam 2 MG/ML VIAL IM/IVP PRN (23:20)
[2018-10-25] MEDS ORDERED: DOCUSATE SODIUM 100 MG GELCAP PO PRN (23:20)
[2018-10-25] MEDS ORDERED: ONDANSETRON 4 MG/2 ML VIAL IM/IVP PRN (23:20)
[2018-10-25] MEDS ORDERED: LACTULOSE 20 GM/30 ML UDC PO ONE (23:50)
[2018-10-26 00:10] VITALS: BP 122/89
--- NOTE | 2018-10-26 00:10 | NUR ---
RECIEVED PT. FROM ER /GURNEY ,AMBULATORY , NID ,WITH STABLE V/S ,IV SITE INTACT AND PATENT , TRANSFER TO BED SAFELY AND COMFORTABLY , PUT ON FALL RISK PRECAUTION WELL S2 PRECAUTION , NON ALCOHOLIC - LAST ALCOHOL INTACT YESTERDAT @1300 .ADMMISSION ASSESSMENT DONE , MRSA COLLECTED AND SENT TO LAB , PLAN OF CARE DISCUSSED AND VERBALIZE UNDERSTANDING , CALL LIGHT WITHIN REACH , BED IN LOW POSITION ,SIDE RAILS UP , WILL CONTINUE TO MONITOR.
--- NOTE | 2018-10-26 00:10 | NUR ---
REPORT GIVEN AND CARE TRANSFERED TO ELISABET RN ROOM 125B. TRANSFERED VIA RNEY WITH VSS.
[2018-10-26] MEDS: NACL 0.9% 1,000 ML IV SCH ×3 (00:41→16:11)
--- NOTE | 2018-10-26 01:00 | NUR ---
SEEN AND EXAMINE BY TURNER , MADE NEW ORDERS AND CARRIED OUT .
[2018-10-26] MEDS ORDERED: MULTIVITAMIN-12 10 ML, THIAMINE 100 MG, MAGNESIUM SULFATE 50% 2,000 MG, FOLIC ACID 1 MG... IV ONE ×5 (01:40)
[2018-10-26 01:45] LABS: AMYLASE 17 U/L (25-115); LIPASE 137 U/L (73-393); PHOSPHORUS 2.8 mg/dL (2.5-4.9)
[2018-10-26 01:46] LABS: MAGNESIUM 1.8 mg/dL (1.8-2.4)
--- NOTE | 2018-10-26 02:00 | NUR ---
MADE ROUNDS ,PT REATING ON BED ,NID , CALL LIGHT WITHIN REACH..STEAM TUNNEL FEEDER IN PLACE. WILL CONTINUE TO MONITOR.
[2018-10-26 04:00] VITALS: BP 125/78
--- NOTE | 2018-10-26 04:00 | NUR ---
MADE ROUNDS , V/S WNL , IVF INFUSING WELL ,WILL CONTINUE TO MONITOR.CALL LIGHT WITHIN REACH.
[2018-10-26] MEDS ORDERED: MULTIVITAMIN-12 10 ML in NACL 0.9% 1,000 ML IV ONE (04:32)
[2018-10-26] MEDS ORDERED: FOLIC ACID 5 MG/ML SYR IM SCH (05:00)
[2018-10-26] MEDS ORDERED: THIAMINE 200 MG/2 ML VIAL IM SCH ×2 (05:00→09:00)
[2018-10-26] MEDS ORDERED: MAG SULF 2000 MG/WATER PREMIX 50 ML IV SCH (05:00)
--- NOTE | 2018-10-26 05:03 | NUR ---
MAG. RIDER TIV GIVEN ORDERED , PT V/S WITHIN NORMAL LIMITS , VOIDED FREELY ,WILL CONTINUE TO MONITOR ,CALL LIGHT WITHIN REACH .
[2018-10-26] MEDS ORDERED: MULTIVITAMIN-12 10 ML VIAL IV ONE (05:45)
--- NOTE | 2018-10-26 06:00 | NUR ---
MADE ROUNDS , PT RESTING ON BED ,NO FURTHER MADE AT THIS TIME ,WILL CONTINUE TO MONITOR , CALL LIGHT WITHIN REACH .
--- NOTE | 2018-10-26 07:10 | NUR ---
ENDORSED TO AM SHIFT NURSE FOR CONTINUITY OF CARE ,STILL FOR U/A .
--- NOTE | 2018-10-26 07:10 | NUR ---
RECEIVED BEDSIDE REPORT FROM DONTRELL MONROE. PATIENT ON TELE MONITOR AND STANDARD PRECAUTIONS IN PLACE. PATIENT AAOX4, ON ROOM AIR, NO DISTRESS NOTED. SKIN INTACT. IV ON L AC 20 G INFUSING BANANA BAG AT 120. IV PATENT AND INTACT. BED IN LOW POSITION, CALL LIGHT WITHIN REACH, SIDE RAILS X2 UP
[2018-10-26 07:59] LABS: BASOPHILS % (AUTO) 0.8 % (0.0-2.0); EOSINOPHILS % (AUTO) 0.5 % (0.0-4.0); HEMATOCRIT 34.4 % (36-52); HEMOGLOBIN 11.6 g/dL (12.0-18.0); LYMPHOCYTES # (AUTO) 1.5 K/uL (2.0-11.5); MEAN CORPUSCULAR HEMOGLOBIN 33 pg (27-31); MEAN CORPUSCULAR HGB CONC 34 g/dL (33-37); MEAN CORPUSCULAR VOLUME 98.2 fL (80-94); MONOCYTES # (AUTO) 0.3 K/uL (0.8-1.0); MONOCYTES % (AUTO) 7.7 % (1.7-9.3); PLATELET COUNT (AUTO) 113 K/uL (140-450); RED CELL DISTRIBUTION WIDTH 14.8 % (11.6-13.7); WHITE BLOOD COUNT (AUTO) 3.8 K/uL (4.8-10.8)
[2018-10-26 08:00] VITALS: BP 133/91
[2018-10-26] MEDS ORDERED: MULTIVITAMIN 1 TAB PO SCH (09:00)
[2018-10-26] MEDS ORDERED: FOLIC ACID 1 MG TAB PO SCH (09:00)
--- NOTE | 2018-10-26 09:00 | NUR ---
SENT UA TO LAB
--- NOTE | 2018-10-26 11:11 | NUR ---
PATIENT COMPLAINING OF FEELING ANXIOUS AND SHAKY
[2018-10-26 12:00] VITALS: BP 135/94
[2018-10-26 12:23] LABS: APPEARANCE,URINE CLEAR (CLEAR); BILIRUBIN,URINE 2+ (NEGATIVE); BLOOD, URINE NEGATIVE (NEGATIVE); COLOR,URINE DARK YELLOW (YELLOW); LEUKOCYTE ESTERASE ,URINE NEGATIVE (NEGATIVE); NITRITE, URINE NEGATIVE (NEGATIVE); PH,URINE 5.5 (5.0-9.0); UGLUCOSE TRACE (NEGATIVE)
--- NOTE | 2018-10-26 12:54 | NUR ---
PATIENT HAS BEEN SCREENED AND CATEGORIZED MODERATE NUTRITION RISK. PATIENT WILL BE SEEN WITHIN 3-5 DAYS OF ADMISSION. 10/28/18MALIKA MATHEW MBA, RD
--- NOTE | 2018-10-26 13:38 | NUR ---
PATIENT SLEEPING, ON ROOM AIR, NO DISTRESS NOTED
[2018-10-26 16:00] VITALS: BP 138/92
--- NOTE | 2018-10-26 16:00 | NUR ---
PATIENT SITTING IN BED, ON ROOM AIR, NO DISTRESS NOTED
[2018-10-26 16:18] LABS: MAGNESIUM 2.5 mg/dL (1.8-2.4)
[2018-10-26 16:20] LABS: PROTHROMBIN TIME 13.7 secs (10.8-13.4)
[2018-10-26 16:22] LABS: ANION GAP 16.6 (8-16)
[2018-10-26 16:28] LABS: TOTAL BILIRUBIN 5.8 mg/dL (0.0-1.0)
[2018-10-26 16:33] LABS: ALBUMIN 2.8 g/dL (3.4-5.0)
[2018-10-26 16:34] LABS: CREATININE 1.1 mg/dL (0.7-1.3)
[2018-10-26 16:35] LABS: POTASSIUM 3.6 mmol/L (3.5-5.1)
[2018-10-26] MEDS ORDERED: chlordiazePOXIDE 25 MG CAP ONE ×2 (18:24→19:05)
[2018-10-26] MEDS: chlordiazePOXIDE 25 MG CAP PO SCH (18:55)
--- NOTE | 2018-10-26 18:57 | NUR ---
ADMINISTERED LIBRIUM ORDERED
--- NOTE | 2018-10-26 19:05 | NUR ---
BEDSIDE REPORT GIVEN TO DONTRELL AGUILAR. PATIENT ENDORSED IN STABLE CONDITION
--- NOTE | 2018-10-26 19:06 | NUR ---
RECEIVED BEDSIDE REPORT FROM DAY SHIFT NURSE SEAN RN, PT STABLE, NO DISTRESS NOTED, IV TO L AC 20G, PATENT INTACT, INFUSING NS @ 120ML/HR PER MD ORDER, PT ON ROOM AIR, NO SOB, DENIES ANY PAIN AT THIS MOMENT, INITIAL ASSESSMENT DONE, ALL SAFETY PRECAUTION MET, CALL LIGHT WITHIN REACH, WILL CONTINUE TO MONITOR.
[2018-10-26 20:00] VITALS: BP 142/94
--- NOTE | 2018-10-26 22:40 | NUR ---
PT AMBULATED TO RESTROOM AND BACK TO BED, TOLERATED WELL, NO DISTRESS NOTED, CALL LIGHT WITHIN REACH, WILL CONTINUE TO MONITOR.
[2018-10-27] VITALS: BP 133/88
[2018-10-27] MEDS ORDERED: ZOLPIDEM 5 MG TAB PO PRN
--- NOTE | 2018-10-27 00:12 | NUR ---
PT COMPLAINED NOT ABLE TO SLEEP, REQUESTING ADOLFOIEN, NOTIFIED REGARDING MEDICATION REQUEST, STATED UNDERSTANDING. MEDICATION ADMINISTERED PER DR ORDER, PT TOLERATED WELL, NO DISTRESS NOTED, CALL LIGHT WITHIN REACH, WILL CONTINUE TO MONITOR.
[2018-10-27] MEDS ORDERED: LACTULOSE 20 GM/30 ML UDC PO ONE (00:15)
[2018-10-27] MEDS: NACL 0.9% 1,000 ML IV SCH ×3 (00:31→19:24)
--- NOTE | 2018-10-27 02:12 | NUR ---
PT SLEEPING, NO DISTRESS NOTED, CALL LIGHT WITHIN REACH, WILL CONTINUE TO MONITOR.
[2018-10-27 04:00] VITALS: BP 137/93
--- NOTE | 2018-10-27 04:10 | NUR ---
CHECKED ON PT, PT SLEEPING, NO DISTRESS NOTED, V/S TAKEN, WITHIN PT BASELINE, CALL LIGHT WITHIN REACH.
[2018-10-27 06:33] LABS: BASOPHILS # (AUTO) 0.1 K/uL (0.00-0.22); BASOPHILS % (AUTO) 1.1 % (0.0-2.0); EOSINOPHILS # (AUTO) 0.1 K/uL (0-0.4); EOSINOPHILS % (AUTO) 1.1 % (0.0-4.0); HEMATOCRIT 33.8 % (36-52); HEMOGLOBIN 11.1 g/dL (12.0-18.0); LYMPHOCYTES # (AUTO) 1.3 K/uL (2.0-11.5); LYMPHOCYTES % (AUTO) 28.6 % (20.5-51.1); MEAN CORPUSCULAR HEMOGLOBIN 32 pg (27-31); MEAN CORPUSCULAR HGB CONC 33 g/dL (33-37); MEAN CORPUSCULAR VOLUME 97.2 fL (80-94); MONOCYTES # (AUTO) 0.4 K/uL (0.8-1.0); MONOCYTES % (AUTO) 9.2 % (1.7-9.3); NEUTROPHILS # (AUTO) 2.8 K/uL (1.8-7.7); PLATELET COUNT (AUTO) 100 K/uL (140-450); RED BLOOD CELL COUNT(AUTO) 3.48 MIL/uL (4.20-6.10); RED CELL DISTRIBUTION WIDTH 14.1 % (11.6-13.7); WHITE BLOOD COUNT (AUTO) 4.7 K/uL (4.8-10.8)
[2018-10-27 06:51] LABS: ALBUMIN 2.3 g/dL (3.4-5.0); ANION GAP 11.4 (8-16); CARBON DIOXIDE 27.1 mmol/L (21-32); PHOSPHORUS 2.9 mg/dL (2.5-4.9); POTASSIUM 3.5 mmol/L (3.5-5.1); TOTAL BILIRUBIN 6.4 mg/dL (0.0-1.0)
--- NOTE | 2018-10-27 07:17 | NUR ---
ENDORSED PT TO DAY SHIFT NURSE, PT STABLE, NO DISTRESS NOTED, CALL LIGHT WITHIN REACH.
--- NOTE | 2018-10-27 07:20 | NUR ---
RECEIVED PT FROM FLEET SALES MANAGER NURSE, PT IS AWAKE AND LYING ON THE BED, SIDE RAILS ARE UP AND CALL LIGHT WITHIN REACH, PT HAS AN IV LINE ON THE LEFT AC G. 20 WITH NS INFUSING AT 120ML/HR INTACT, PT DENIES PAIN AND NO SIGN OF DISTRESS NOTED. WILL CONTINUE TO MONITOR PT.
[2018-10-27 08:00] VITALS: BP 146/101
[2018-10-27] MEDS: MULTIVITAMIN 1 TAB PO SCH (08:56)
[2018-10-27] MEDS: FOLIC ACID 1 MG TAB PO SCH (08:56)
[2018-10-27] MEDS: chlordiazePOXIDE 25 MG CAP PO SCH ×3 (08:56→16:20)
--- NOTE | 2018-10-27 08:58 | NUR ---
PT IS AWAKE AND ORAL AND IM MEDICATIONS WERE GIVEN AND PT TOLERATED IT. WILL MONITOR PT.
[2018-10-27] MEDS ORDERED: chlordiazePOXIDE 25 MG CAP PO SCH (09:00)
[2018-10-27] MEDS ORDERED: THIAMINE 200 MG/2 ML VIAL IM SCH (09:00)
--- NOTE | 2018-10-27 12:37 | NUR ---
PT IS AWAKE AND SEATED ON THE BED, JUST FINISHED EATING HIS LUNCH, ORAL MEDICATIONS WERE GIVEN, BP IS 147/96, O2 SATURATION IS 96%, PULSE IS 90, AND PT TOLERATED IT. WILL MONITOR PT.
--- NOTE | 2018-10-27 14:44 | NUR ---
PT'S IVF RATE WAS DECREASED TO 30ML/HR NOW.
[2018-10-27 16:00] VITALS: BP 138/95
--- NOTE | 2018-10-27 16:21 | NUR ---
PT IS AWAKE AND WAS GIVEN ORAL MEDICATIONS, BP IS 138/95, PULSE IS 86, O2 SATURATION IS 97% AND TEMPERATURE IS 99.1, NO SIGN OF DISTRESS NOTED AND WILL MONITOR PT.
--- NOTE | 2018-10-27 19:17 | NUR ---
ENDORSED PT TO FIREPOT OPERATOR AND TENDER NURSE FOR CONTINUITY OF CARE.
[2018-10-27 20:00] VITALS: BP 126/86
[2018-10-27] MEDS: LACTULOSE 20 GM/30 ML UDC PO SCH (21:28)
[2018-10-28] VITALS: BP 126/80
[2018-10-28 02:25] LABS: BARBITURATE, URINE NEG. ng/ml (NEG <=200); BENZODIAZEPINE, URINE POS. ng/mL (NEG <=200); CANNABINOID, URINE POS. ng/mL (NEG <=50); COCAINE, URINE NEG. ng/mL (NEG <=300); OPIATE, URINE NEG. ng/mL (NEG <=2000); PHENCYCLIDINE SCREEN,URINE NEG. ng/mL (NEG <=25)
[2018-10-28 04:00] VITALS: BP 125/75
[2018-10-28 05:48] LABS: ANION GAP 11.4 (8-16); CARBON DIOXIDE 27.8 mmol/L (21-32); CREATININE 0.9 mg/dL (0.7-1.3); POTASSIUM 3.2 mmol/L (3.5-5.1)
[2018-10-28 05:55] LABS: ALBUMIN 2.4 g/dL (3.4-5.0); BILIRUBIN,DIRECT 5.4 mg/dL (0.0-0.3); TOTAL BILIRUBIN 6.4 mg/dL (0.0-1.0)
[2018-10-28 06:18] LABS: BASOPHILS % (AUTO) 0.5 % (0.0-2.0); EOSINOPHILS # (AUTO) 0.1 K/uL (0-0.4); EOSINOPHILS % (AUTO) 1.3 % (0.0-4.0); HEMATOCRIT 34.4 % (36-52); HEMOGLOBIN 11.2 g/dL (12.0-18.0); LYMPHOCYTES # (AUTO) 1.6 K/uL (2.0-11.5); LYMPHOCYTES % (AUTO) 25.8 % (20.5-51.1); MEAN CORPUSCULAR HEMOGLOBIN 32 pg (27-31); MEAN CORPUSCULAR HGB CONC 33 g/dL (33-37); MEAN CORPUSCULAR VOLUME 97.8 fL (80-94); MONOCYTES # (AUTO) 0.4 K/uL (0.8-1.0); MONOCYTES % (AUTO) 6.8 % (1.7-9.3); NEUTROPHILS # (AUTO) 4.1 K/uL (1.8-7.7); NEUTROPHILS % (AUTO) 65.6 % (42.2-75.2); PLATELET COUNT (AUTO) 107 K/uL (140-450); RED BLOOD CELL COUNT(AUTO) 3.52 MIL/uL (4.20-6.10); RED CELL DISTRIBUTION WIDTH 14.1 % (11.6-13.7); WHITE BLOOD COUNT (AUTO) 6.3 K/uL (4.8-10.8)
--- NOTE | 2018-10-28 07:50 | NUR ---
PATIENT WAS AWAKE, ALERT. RESPIRATION EVEN, UNLABOR ON ROOM AIR. SKIN DRY AND WARM. IV PATENT AND INTACT. DENIED PAIN AT THIS TIME. PLAN OF CARE WAS DISCUSSED WITH PATIENT. BED AT LOW POSITION, SIDE RAILS UP. CALL LIGHT WITHIN REACH
[2018-10-28 08:00] VITALS: BP 118/75
[2018-10-28 08:11] LABS: HEPATITIS A ANTIBODY IGM Negative (Negative); HEPATITIS B CORE AB TOTAL Negative (Negative); HEPATITIS B SURFACE ANTIBODY Non Reactive (.); HEPATITIS B SURFACE ANTIGEN Negative (Negative)
[2018-10-28] MEDS ORDERED: THIAMINE 100 MG TAB PO SCH (09:00)
[2018-10-28] MEDS: LACTULOSE 20 GM/30 ML UDC PO SCH (09:02)
[2018-10-28] MEDS: chlordiazePOXIDE 25 MG CAP PO SCH ×2 (09:02→12:02)
[2018-10-28] MEDS: MULTIVITAMIN 1 TAB PO SCH (09:03)
[2018-10-28] MEDS: FOLIC ACID 1 MG TAB PO SCH (09:03)
--- NOTE | 2018-10-28 09:30 | NUR ---
PATIENT WAS AWAKE, ALERT. MED WAS GIVEN PER ORDER. NO DISTRESS NOTED AT THIS TIME
[2018-10-28] MEDS ORDERED: POTASSIUM CHLORIDE 10 MEQ TABER PO SCH (11:15)
--- NOTE | 2018-10-28 11:20 | NUR ---
PATIENT WAS SLEEPING COMFORTABLY. RESPIRATION EVEN, UNLABOR ON ROOM AIR. NO DISTRESS NOTED AT THIS TIME
[2018-10-28] MEDS ORDERED: THIA-34 PO (12:06)
[2018-10-28] MEDS ORDERED: FOLI1TAB90 PO (12:06)
[2018-10-28] MEDS ORDERED: LACT10SO11 PO (12:06)
--- NOTE | 2018-10-28 12:12 | NUR ---
PATIENT WAS AWAKE, ALERT. RESPIRATION EVEN, UNLABOR ON ROOM AIR. DENIED PAIN, N/V AT THIS TIME. NO DISTRESS NOTED.
--- NOTE | 2018-10-28 13:44 | NUR ---
DISCHARGE INSTRUCTION AND PRESCRIPTION WERE GIVEN AND EXPLAINED TO PATIENT. PATIENT VERBALIZED UNDERSTANDING. IV WAS REMOVED, CATHETER INTACT, NO ACTIVE BLEEDING SEEN.
[2018-10-28 13:45] VITALS: BP 121/77
--- NOTE | 2018-10-28 14:03 | NUR ---
PATIENT WAS ESCORTED OUT BY STAFF, AMBULATORY WITH STEADY GAIT. ALL BELONGINGS WERE TAKEN WITH THE PATIENT. PATIENT IS STABLE AT THIS TIME Addendum: 10/28/18 at 1406 by Terri Perdomo RN PATIENT IS BEING DISCHARGED TO HOME
== END 2018-10-28 14:06 | disposition home or self-care (01) | DRG 280 ==
LOC: MED 18:26 → MMU 23:27
PROVIDERS: ADMIT General Practice; ATTEND General Practice
DX: K70.40 Alcoholic hepatic failure without coma (principal); K70.0 Alcoholic fatty liver; E43 Unspecified severe protein-calorie malnutrition; D69.6 Thrombocytopenia, unspecified; E72.20 Disorder of urea cycle metabolism, unspecified; E87.8 Other disorders of electrolyte and fluid balance, not elsewhere classified; E87.1 Hypo-osmolality and hyponatremia; K80.20 Calculus of gallbladder without cholecystitis without obstruction; E78.5 Hyperlipidemia, unspecified; E66.3 Overweight; R74.0 Nonspecific elevation of levels of transaminase and lactic acid dehydrogenase [LDH]; Z68.29 Body mass index [BMI] 29.0-29.9, adult; Z71.3 Dietary counseling and surveillance; D64.9 Anemia, unspecified; R80.9 Proteinuria, unspecified; F12.10 Cannabis abuse, uncomplicated; F19.10 Other psychoactive substance abuse, uncomplicated
CPT/HCPCS: 36415; 36600; 71045; 76705; 80048; 80053; 80076; 80305; 81003; 82140; 82150; 82272; 82803; 83605; 83690; 83735; 84100; 84484; 85025; 85610; 85730; 86704; 86706; 86708; 86709; 86803; 87081; 87340; 96361; 96374; 96375; 99285; A9153; G0482; J2060; J2405; J3411; J3475; J3490; J7030; Q0092

== ENCOUNTER 2018-12-05 17:16 | Inpatient (IN) | payer MEDICAID ==
[~2018-12-05] VITALS: Ht 180.3 cm; Wt 90.7 kg
[~2018-12-05 17:16] MED LIST: FOLI1TAB90 PO; LACT10SO11 PO; THIA-34 PO
[2018-12-05 17:30] VITALS: BP 104/58
[2018-12-05] MEDS ORDERED: MULTIVITAMIN-12 10 ML, THIAMINE 100 MG, FOLIC ACID 1 MG, MAGNESIUM SULFATE 50% 2,000 MG... IV SCH ×5 (17:35)
--- NOTE | 2018-12-05 17:40 | NUR ---
PT PRESENTS TO ED WITH C/O OF "ALCOHOL WITHDRAWAL". PER PT HE CONSUMED VODKA TODAY; REPORTS ANXIETY AND SHAKINEES. PT IS ALERT TO NAME, PLACE, TIME AND EVENT. PUPILS EQUAL AND REACTIVE TO LIGHT BILATERALLY. BILAT HAND PRODUCTION WEIGHER EQUAL; BILAT FOOT PUSH EQUAL. SPEECH IS CLEAR. PT NOTED CALM AND COOPERATIVE WITH CARE. ERMD TO EVALUATE PT.
--- NOTE | 2018-12-05 17:41 | NUR ---
PT NOTED WITH STRONG ETOH ODOR. GURNEY LOCKED AND IN LOWEST POSTION; SIDERAILS UP FOR SAFETY.
--- NOTE | 2018-12-05 18:08 | NUR ---
NETWORK PLANNER AT BEDSIDE
--- NOTE | 2018-12-05 18:10 | NUR ---
DR LOMAX AT BEDSIDE
[2018-12-05] MEDS ORDERED: LORazepam 2 MG/ML VIAL IVP ONE (18:15)
[2018-12-05 18:23] LABS: HEMATOCRIT 40.8 % (36-52); HEMOGLOBIN 13.7 g/dL (12.0-18.0); MEAN CORPUSCULAR HEMOGLOBIN 31 pg (27-31); MEAN CORPUSCULAR HGB CONC 34 g/dL (33-37); MEAN CORPUSCULAR VOLUME 93.7 fL (80-94); PLATELET COUNT (AUTO) 269 K/uL (140-450); RED BLOOD CELL COUNT(AUTO) 4.35 MIL/uL (4.20-6.10); RED CELL DISTRIBUTION WIDTH 13.6 % (11.6-13.7); WHITE BLOOD COUNT (AUTO) 4.7 K/uL (4.8-10.8)
--- NOTE | 2018-12-05 18:27 | NUR ---
PHARMACY TO MIX IV FLUIDS ORDERED.
[2018-12-05 18:30] LABS: BARBITURATE, URINE NEG. ng/ml (NEG <=200); BENZODIAZEPINE, URINE NEG. ng/mL (NEG <=200); CANNABINOID, URINE POS. ng/mL (NEG <=50); COCAINE, URINE NEG. ng/mL (NEG <=300); OPIATE, URINE NEG. ng/mL (NEG <=2000); PHENCYCLIDINE SCREEN,URINE NEG. ng/mL (NEG <=25)
[2018-12-05 18:33] LABS: ANION GAP 8.5 (8-16); CARBON DIOXIDE 33.2 mmol/L (21-32); CHLORIDE 108 mmol/L (98-107); GFR ARICAN-AMERICAN 117 mL/min (>90); GLUCOSE 93 mg/dL (74-106); POTASSIUM 3.7 mmol/L (3.5-5.1); SODIUM SERUM 146 mmol/L (136-145); UREA NITROGEN, BLOOD 6 mg/dL (7-18)
[2018-12-05 18:40] LABS: ALBUMIN 3.3 g/dL (3.4-5.0); ASPARTATE AMINOTRANSFERASE 80 U/L (15-37); TOTAL BILIRUBIN 0.3 mg/dL (0.0-1.0)
[2018-12-05 18:51] LABS: ACETAMINOPHEN < 0.5 ug/ml (10-30); SALICYLATE < 2.8 mg/dL (2.8-20.0)
[2018-12-05 18:52] LABS: BASOPHILS % (MANUAL) 0 % (0-2); EOSINOPHILS % (MANUAL) 4 % (0-4); LYMPHOCYTES % (MANUAL) 61 % (20-46); MONOCYTES % (MANUAL) 4 % (5-12)
--- NOTE | 2018-12-05 19:19 | NUR ---
REPORT GIVEN TO DONTRELL TENORIO; TRANSFER OF CARE AT THIS TIME.
--- NOTE | 2018-12-05 19:21 | NUR ---
ALL RESULTS BACK AND NOTED BY ERMD AND FOR ADMISSION
--- NOTE | 2018-12-05 19:36 | NUR ---
Patient will be admitted to care of DR OLVERA. Admited to TELEMETRY. . Belongings list completed.
[2018-12-05] MEDS ORDERED: ACETAMINOPHEN 325 MG TAB PO PRN (20:00)
[2018-12-05] MEDS ORDERED: HYDROcodone/APAP 7.5/325 MG 1 TAB PO PRN (20:00)
[2018-12-05] MEDS ORDERED: ONDANSETRON 4 MG/2 ML VIAL IM/IVP PRN (20:00)
[2018-12-05] MEDS ORDERED: FAMOTIDINE 20 MG/2 ML VIAL IV PRN (20:00)
[2018-12-05] MEDS ORDERED: LORazepam 2 MG/ML VIAL IM/IVP PRN (20:00)
[2018-12-05] MEDS ORDERED: DOCUSATE SODIUM 100 MG GELCAP PO PRN (20:00)
[2018-12-05 21:17] LABS: APPEARANCE,URINE CLEAR (CLEAR); BILIRUBIN,URINE NEGATIVE (NEGATIVE); BLOOD, URINE NEGATIVE (NEGATIVE); COLOR,URINE YELLOW (YELLOW); LEUKOCYTE ESTERASE ,URINE NEGATIVE (NEGATIVE); NITRITE, URINE NEGATIVE (NEGATIVE); UGLUCOSE NEGATIVE (NEGATIVE)
[2018-12-05 21:30] VITALS: BP 121/87
--- NOTE | 2018-12-05 21:30 | NUR ---
RECEIVED BEDSIDE REPORT FROM ED RN COBY, FOR PATIENT'S CONTINUITY OF CARE. PATIENT WAS TRANSPORTED VIA GURNEY. IS AWAKE, ALERT, ORIENTED X 4, IS ON ROOM AIR, HAS LEFT AC 22G IV SALINE LOCK, GI/ WNL, SKIN IS INTACT, IS ON CARDIAC MONITORING. ADMIT STRIP: SR/ARTIFACTS. DENIES PAIN AT THIS TIME. EXPLAINED TO PATIENT THE ROUTINE DURING SUPERVISOR TUMBLERS, PT VERBALIZED UNDERSTANDING. WILL MONITOR PATIENT THROUGHOUT SHIFT.
[2018-12-05 21:31] LABS: PROTHROMBIN TIME 10.3 secs (10.8-13.4)
[2018-12-05 21:49] LABS: CHOL/HDL RATIO 2.3 (1-4.5); MAGNESIUM 2.1 mg/dL (1.8-2.4); PHOSPHORUS 3.8 mg/dL (2.5-4.9)
[2018-12-05 21:50] LABS: FREE T4 (FREE THYROXINE) 0.72 ng/dL (0.76-1.46); THYROID STIMULATING HORMONE 0.46 uIU/mL (0.34-3.74)
--- NOTE | 2018-12-05 21:57 | NUR ---
RECEIVED CALL FROM LAB FOR CRITICAL LAB VALUE - LACTIC ACID 2.1. NOTIFIED MD, NO NEW ORDERS AT THIS TIME. WILL CONTINUE TO MONITOR PATIENT.
[2018-12-05] MEDS: DEXT 5% / NACL 0.45% 1,000 ML IV SCH (23:00)
[2018-12-05] MEDS: LORazepam 2 MG/ML VIAL IVP PRN (23:10)
--- NOTE | 2018-12-05 23:10 | NUR ---
ADMINISTERED SCHEDULED PO MEDICATION ORDERED. PATIENT C/O BEING ANXIOUS, ADMINISTERED IV PUSH ATIVAN ORDERED. PATIENT TOLERATED MEDICATIONS WELL.
[2018-12-05] MEDS: chlordiazePOXIDE 25 MG CAP PO SCH (23:20)
--- NOTE | 2018-12-05 23:55 | NUR ---
RECEIVED CALL FROM LAB FOR CRITICAL LAB VALUE OF 2ND LACTIC ACID 2.3. NOTIFIED MD, NO NEW ORDERS AT THIS TIME. VITAL SIGNS CHECKED AND CHARTED. PATIENT DENIES PAIN AT THIS TIME. WILL CONTINUE TO MONITOR PATIENT.
[2018-12-06] VITALS: BP 121/72
[2018-12-06] MEDS ORDERED: traZODone 50 MG TAB PO PRN
--- NOTE | 2018-12-06 01:20 | NUR ---
PATIENT REQUESTED FOR MEDICATION THAT WILL HELP WITH SLEEP AND ANXIETY. ADMINISTERED PO MEDICATION ORDERED. PATIENT TOLERATED IT WELL. EDUCATED PATIENT RE: J[place], PT VERBALIZED UNDERSTANDING. PATIENT STATED THAT HE MOST LIKELY WILL NEED ANOTHER DOSE OF ANTI-ANXIETY MEDICATION. INSTRUCTED PATIENT TO USE CALL LIGHT BUTTON WHEN MEDICATION IS NEEDED.
--- NOTE | 2018-12-06 01:21 | NUR ---
PATIENT REQUESTED FOR MEDICATION TO HELP FALL ASLEEP, NOTIFIED MD. ADMINISTERED PO MEDICATION TRAZODONE ORDERED. PATIENT TOLERATED IT WELL.
--- NOTE | 2018-12-06 02:45 | NUR ---
MADE ROUNDS. PATIENT IS LYING DOWN ASLEEP, WITH NO SIGNS OF DISTRESS. WILL CONTINUE TO MONITOR PATIENT.
[2018-12-06] MEDS: DEXT 5% / NACL 0.45% 1,000 ML IV SCH ×2 (03:15→09:55)
[2018-12-06 04:00] VITALS: BP 110/67
--- NOTE | 2018-12-06 04:00 | NUR ---
VITAL SIGNS CHECKED AND CHARTED. PATIENT ASLEEP, DENIES PAIN AT THIS TIME.
[2018-12-06 04:58] LABS: BASOPHILS % (AUTO) 1.5 % (0.0-2.0); EOSINOPHILS % (AUTO) 0.9 % (0.0-4.0); HEMATOCRIT 37.6 % (36-52); HEMOGLOBIN 12.6 g/dL (12.0-18.0); LYMPHOCYTES # (AUTO) 1.6 K/uL (2.0-11.5); LYMPHOCYTES % (AUTO) 49.4 % (20.5-51.1); MEAN CORPUSCULAR HEMOGLOBIN 31 pg (27-31); MEAN CORPUSCULAR HGB CONC 34 g/dL (33-37); MEAN CORPUSCULAR VOLUME 93.3 fL (80-94); MONOCYTES # (AUTO) 0.3 K/uL (0.8-1.0); MONOCYTES % (AUTO) 9.8 % (1.7-9.3); NEUTROPHILS # (AUTO) 1.2 K/uL (1.8-7.7); NEUTROPHILS % (AUTO) 38.4 % (42.2-75.2); PLATELET COUNT (AUTO) 253 K/uL (140-450); RED BLOOD CELL COUNT(AUTO) 4.03 MIL/uL (4.20-6.10); RED CELL DISTRIBUTION WIDTH 13.6 % (11.6-13.7); WHITE BLOOD COUNT (AUTO) 3.2 K/uL (4.8-10.8)
[2018-12-06 05:16] LABS: ANION GAP 9.2 (8-16); CARBON DIOXIDE 30.3 mmol/L (21-32); CREATININE 0.9 mg/dL (0.7-1.3); POTASSIUM 3.5 mmol/L (3.5-5.1)
[2018-12-06] MEDS: chlordiazePOXIDE 25 MG CAP PO SCH ×3 (05:37→17:12)
[2018-12-06] MEDS: LORazepam 2 MG/ML VIAL IVP PRN ×5 (05:48→21:19)
--- NOTE | 2018-12-06 05:48 | NUR ---
ADMINISTERED IV PUSH MEDICATION AND PO MEDICATION ORDERED. PATIENT TOLERATED THEM WELL. PATIENT STATES THAT TAKING LIBRIUM AND ATIVAN AT THE SAME TIME HELPS ALLEVIATE SHAKING/SYMPTOMS OF WITHDRAWALS. WILL CONTINUE TO MONITOR PATIENT.
--- NOTE | 2018-12-06 06:30 | NUR ---
PATIENT ASLEEP, CHANGED SENIOR INSTRUCTIONAL DESIGNER LEADS. PATIENT DENIES PAIN OR DISTRESS AT THIS TIME. WILL ENDORSE TO AM SHIFT RN FOR PATIENT'S CONTINUITY OF CARE.
--- NOTE | 2018-12-06 07:20 | NUR ---
RECEIVED BEDSIDE REPORT FROM ASW SPECIALIST NURSE. PT IS SLEEPING, AROUSED BY NAME, OX4, NO S/S OF RESPIRATORY DISTRESS ON ROOM AIR. IV TO LEFT AC 22G RUNNING D5 1/2 NS AT 150ML/HR, PATENT, INTACT, AND ASYMPTOMATIC. LUNG SOUNDS CLEAR, BOWEL SOUNDS ACTIVE. DENIES PAIN AT THIS TIME. ORIENTED PT TO ROOM. PT VERBALIZED UNDERSTANDING. CALL LIGHT WITHIN REACH. ABLE TO AMBULATE TO RESTROOM. WILL CONTINUE TO MONITOR PATIENT. Addendum: 12/06/18 at 1436 by Yash Ward RN [facility] PRECAUTIONS IN PLACE.
[2018-12-06 08:00] VITALS: BP 113/65
[2018-12-06] MEDS ORDERED: MULTIVITAMIN-12 10 ML, THIAMINE 100 MG, FOLIC ACID 1 MG, MAGNESIUM SULFATE 50% 2,000 MG... IV SCH ×10 (08:00→17:35)
[2018-12-06 12:00] VITALS: BP 122/84
--- NOTE | 2018-12-06 12:29 | NUR ---
VITALS TAKEN, PT C/O FEELS SOME ANXIETY. ATIVAN GIVEN PER MD ORDER.
--- NOTE | 2018-12-06 15:50 | NUR ---
PT FEELS SOME ANXIETY. ATIVAN GIVEN PER MD ORDER.
[2018-12-06] MEDS: NACL 0.9% 1,000 ML IV SCH (15:57)
[2018-12-06 16:00] VITALS: BP 128/85
--- NOTE | 2018-12-06 19:10 | NUR ---
REPORT GIVEN TO FEDERAL MEDIATOR RN, P.R.
--- NOTE | 2018-12-06 19:30 | NUR ---
RECEIVED BEDSIDE REPORT FROM AM SHIFT RN GEREMIAS, FOR PATIENT'S CONTINUITY OF CARE. PATIENT IS LYING DOWN ASLEEP, WITH NO SIGNS OF DISTRESS. PATIENT IS ON ROOM AIR, HAS LEFT AC 22G INFUSING WITH NS @ 100 ML/HR. BED IS ON LOW POSITION, SIDE RAILS ARE UP, AND CALL LIGHT WITHIN REACH. WILL MONITOR PT THROUGHOUT SHIFT.
--- NOTE | 2018-12-06 20:47 | NUR ---
ADMINISTERED SCHEDULED SUBQ HEPARIN ON RIGHT ABDOMEN, ORDERED. PATIENT TOLERATED IT WELL. PATIENT STATES INCREASING ANXIETY AND REQUESTED FOR ANTI-ANXIETY MEDICATION.
--- NOTE | 2018-12-06 21:20 | NUR ---
PATIENT STATED ANXIETY WAS INCREASING. ADMINISTERED IV PUSH MEDICATION ORDERED. PATIENT TOLERATED IT WELL. WILL CONTINUE TO MONITOR PATIENT.
[2018-12-07] VITALS: BP 144/90
[2018-12-07] MEDS: LORazepam 2 MG/ML VIAL IVP PRN ×2 (00:02→06:04)
[2018-12-07] MEDS: chlordiazePOXIDE 25 MG CAP PO SCH ×2 (00:02→06:04)
--- NOTE | 2018-12-07 00:07 | NUR ---
ADMINISTERED SCHEDULED PO MEDICATION ORDERED. PATIENT C/O OF INCREASING ANXIETY. ADMINISTERED IV PUSH MEDICATION ORDERED FOR ANXIETY. PATIENT TOLERATED THEM WELL. WILL CONTINUE TO MONITOR PATIENT.
[2018-12-07] MEDS: NACL 0.9% 1,000 ML IV SCH (01:50)
--- NOTE | 2018-12-07 02:40 | NUR ---
PATIENT ASLEEP WITH NO SIGNS OF DISTRESS. WILL CONTINUE TO MONITOR PATIENT.
--- NOTE | 2018-12-07 04:15 | NUR ---
MADE ROUNDS. PATIENT LYING DOWN ASLEEP WITH NO SIGNS OF DISTRESS. WILL CONTINUE TO MONITOR PATIENT.
--- NOTE | 2018-12-07 06:05 | NUR ---
ADMINISTERED SCHEDULED PO MEDICATION ORDERED. PATIENT REQUESTED FOR ANTI-ANXIETY MEDICATION. ADMINISTERED IV PUSH MEDICATION ORDERED. PATIENT TOLERATED THEM WELL. PATIENT DENIES ANY PAIN AT THIS TIME, AND IN STABLE CONDITION. WILL ENDORSE PATIENT TO AM SHIFT RN FOR PATIENT'S CONTINUITY OF CARE.
--- NOTE | 2018-12-07 06:30 | NUR ---
HUNG NEW IV NORMAL SALINE INFUSING AT 100 ML/HR ORDERED.
--- NOTE | 2018-12-07 06:48 | NUR ---
PATIENT HAS BEEN SCREENED AND CATEGORIZED LOW NUTRITION RISK. PATIENT WILL BE SEEN WITHIN 7 DAYS OF ADMISSION. 12/11/18 MARIAELENA DELCID MS, RDN Addendum: 12/07/18 at [address] Correction: PATIENT HAS BEEN SCREENED AND CATEGORIZED HIGH NUTRITION RISK. PATIENT WILL BE SEEN WITHIN 1-2 DAYS OF ADMISSION. 12/07/18-12/08/18 MARIAELENA DELCID MS, RDN
[2018-12-07] MEDS ORDERED: LIB5 PO (07:12)
--- NOTE | 2018-12-07 07:20 | NUR ---
Received report from pm nurse Angelica. Pt resting in bed, awake, verbally responsive, respirations even & nonlabored. No signs of distress, no tremors noted. Left AC IV intact with ongoing NS @ 100ml/hr. Call light within reach.
[2018-12-07 08:06] LABS: BASOPHILS % (AUTO) 1.2 % (0.0-2.0); EOSINOPHILS # (AUTO) 0.1 K/uL (0-0.4); EOSINOPHILS % (AUTO) 1.4 % (0.0-4.0); HEMATOCRIT 37.3 % (36-52); HEMOGLOBIN 12.8 g/dL (12.0-18.0); LYMPHOCYTES # (AUTO) 1.6 K/uL (2.0-11.5); LYMPHOCYTES % (AUTO) 42.4 % (20.5-51.1); MEAN CORPUSCULAR HEMOGLOBIN 32 pg (27-31); MEAN CORPUSCULAR HGB CONC 34 g/dL (33-37); MEAN CORPUSCULAR VOLUME 92.4 fL (80-94); MONOCYTES # (AUTO) 0.5 K/uL (0.8-1.0); MONOCYTES % (AUTO) 14.1 % (1.7-9.3); NEUTROPHILS # (AUTO) 1.5 K/uL (1.8-7.7); NEUTROPHILS % (AUTO) 40.9 % (42.2-75.2); PLATELET COUNT (AUTO) 233 K/uL (140-450); RED BLOOD CELL COUNT(AUTO) 4.04 MIL/uL (4.20-6.10); RED CELL DISTRIBUTION WIDTH 13.6 % (11.6-13.7); WHITE BLOOD COUNT (AUTO) 3.8 K/uL (4.8-10.8)
[2018-12-07 08:13] VITALS: BP 123/84
[2018-12-07 08:30] LABS: ALBUMIN 2.9 g/dL (3.4-5.0); CARBON DIOXIDE 27.6 mmol/L (21-32); CREATININE 0.8 mg/dL (0.7-1.3); MAGNESIUM 1.8 mg/dL (1.8-2.4); PHOSPHORUS 4.6 mg/dL (2.5-4.9); POTASSIUM 3.6 mmol/L (3.5-5.1); TOTAL BILIRUBIN 0.8 mg/dL (0.0-1.0)
--- NOTE | 2018-12-07 09:45 | NUR ---
Written & verbal discharge instructions provided to pt. Pt verbalized understanding & agree to make appt to his PCP within 3-5 days, & will check back in to rehab. Left AC IV removed, catheter intact. Per pt, he has been calling his mother for transport but is not picking up. States he lives across the [address] and would rather walk than wait. Pt aaox4, able to amb with steady gait. Pt guided to front lobby and discharged at this time. All belongings with pt upon departure.
== END 2018-12-07 09:45 | disposition home or self-care (01) | DRG 775 ==
LOC: MED 17:16 → MMU 19:36
PROVIDERS: ADMIT General Practice; ATTEND General Practice
DX: F10.121 Alcohol abuse with intoxication delirium (principal); G92 Toxic encephalopathy; E44.0 Moderate protein-calorie malnutrition; E87.2 Acidosis; K72.90 Hepatic failure, unspecified without coma; G90.9 Disorder of the autonomic nervous system, unspecified; Y90.8 Blood alcohol level of 240 mg/100 ml or more; Z60.2 Problems related to living alone; Z68.27 Body mass index [BMI] 27.0-27.9, adult; Z81.1 Family history of alcohol abuse and dependence
CPT/HCPCS: 36415; 71045; 76705; 80048; 80053; 80305; 81003; 82140; 82150; 83036; 83605; 83690; 83735; 83880; 84100; 84439; 84443; 84484; 85025; 85610; 85730; 87081; 93005; 96365; 96375; 99285; A9153; G0480; G0482; J1644; J2060; J3411; J3475; J3490; J7030; Q0092

== ENCOUNTER 2019-02-20 19:48 | Emergency (ER) | payer MEDICAID, OTHER ==
[~2019-02-20] VITALS: Ht 180.3 cm; Wt 98.9 kg
[~2019-02-20 19:48] MED LIST changes: -FOLI1TAB90 PO; -LACT10SO11 PO; +LIB5 PO; -THIA-34 PO
[2019-02-20 19:59] VITALS: BP 140/86
--- NOTE | 2019-02-20 20:05 | NUR ---
PT AMBULATED TO BED 02.
--- NOTE | 2019-02-20 20:20 | NUR ---
23 Y/O MALE BIB MOM DUE TO ETOH INTOXICATION. PER PT, LAST DRINK WAS 6AM TODAY, VODKA. PT IS CLAMMY AND MUMBLING WORDS. A & O X 4 AND COOPERATIVE. PT IS TACHYCARDIC AT 114BPM. ERMD MADE AWARE. SIDE RAILX2. PLACED ON MONITOR. HX: NONE RX: NONE
[2019-02-20] MEDS ORDERED: MULTIVITAMIN-12 10 ML, THIAMINE 100 MG, MAGNESIUM SULFATE 50% 2,000 MG, FOLIC ACID 1 MG... IV SCH ×5 (20:30)
[2019-02-20] MEDS ORDERED: LORazepam 2 MG/ML VIAL IVP ONE (20:30)
[2019-02-20] MEDS ORDERED: MULTIVITAMIN-12 10 ML VIAL IV ONE (20:49)
[2019-02-20] MEDS ORDERED: FOLIC ACID 5 MG/ML SYR ONE (20:49)
[2019-02-20] MEDS ORDERED: THIAMINE 200 MG/2 ML VIAL ONE (20:49)
[2019-02-20 21:01] LABS: BASOPHILS % (AUTO) 0.6 % (0.0-2.0); EOSINOPHILS % (AUTO) 0.7 % (0.0-4.0); HEMATOCRIT 45.1 % (36-52); HEMOGLOBIN 15.1 g/dL (12.0-18.0); LYMPHOCYTES # (AUTO) 3.1 K/uL (2.0-11.5); LYMPHOCYTES % (AUTO) 51.1 % (20.5-51.1); MEAN CORPUSCULAR HEMOGLOBIN 29 pg (27-31); MEAN CORPUSCULAR HGB CONC 33 g/dL (33-37); MEAN CORPUSCULAR VOLUME 88.1 fL (80-94); MONOCYTES # (AUTO) 0.3 K/uL (0.8-1.0); MONOCYTES % (AUTO) 5.4 % (1.7-9.3); NEUTROPHILS # (AUTO) 2.6 K/uL (1.8-7.7); NEUTROPHILS % (AUTO) 42.2 % (42.2-75.2); PLATELET COUNT (AUTO) 370 K/uL (140-450); RED BLOOD CELL COUNT(AUTO) 5.12 MIL/uL (4.20-6.10); RED CELL DISTRIBUTION WIDTH 14.1 % (11.6-13.7)
[2019-02-20 21:29] LABS: BARBITURATE, URINE NEG. ng/ml (NEG <=200); BENZODIAZEPINE, URINE POS. ng/mL (NEG <=200); CANNABINOID, URINE NEG. ng/mL (NEG <=50); COCAINE, URINE NEG. ng/mL (NEG <=300); OPIATE, URINE NEG. ng/mL (NEG <=2000); PHENCYCLIDINE SCREEN,URINE NEG. ng/mL (NEG <=25)
[2019-02-20 21:57] LABS: ANION GAP 12.2 (8-16); CARBON DIOXIDE 32.7 mmol/L (21-32); CHLORIDE 107 mmol/L (98-107); CREATININE 0.9 mg/dL (0.7-1.3); GFR ARICAN-AMERICAN 132 mL/min (>90); GLUCOSE 111 mg/dL (74-106); POTASSIUM 3.9 mmol/L (3.5-5.1); SODIUM SERUM 148 mmol/L (136-145); UREA NITROGEN, BLOOD 5 mg/dL (7-18)
[2019-02-20 22:05] LABS: ALBUMIN 3.7 g/dL (3.4-5.0); ASPARTATE AMINOTRANSFERASE 48 U/L (15-37); LIPASE 122 U/L (73-393); TOTAL BILIRUBIN 0.2 mg/dL (0.0-1.0)
[2019-02-20 22:06] LABS: ACETAMINOPHEN < 0.5 ug/ml (10-30); SALICYLATE < 2.8 mg/dL (2.8-20.0)
[2019-02-20] MEDS ORDERED: NACL 0.9% 1,000 ML IV ONE ×2 (22:30→23:10)
--- NOTE | 2019-02-20 22:50 | NUR ---
PATIENT IN NO DISTRESS AT THIS TIME. WILL CONTINUE TO MONITOR.
--- NOTE | 2019-02-20 22:59 | NUR ---
STARTED BANANA BAG AT 2111; ENDED AT 2259. 999ML TOTAL. WILL CONTINUE TO MONITOR.
--- NOTE | 2019-02-21 00:53 | NUR ---
PATIENT IS SITTING QUIETLY IN BED. MOTHER AT BEDSIDE. WILL CONTINUE TO MONITOR. Addendum: 02/21/19 at 0055 by LOGAN MOTHER SelenaPETEAlondra LEFT PHONE NUMBER: [phone].
--- NOTE | 2019-02-21 01:33 | NUR ---
RECEIVED REPORT FROM DONTRELL GRAVES. TRANSFER OF CARE AT THIS TIME.
--- NOTE | 2019-02-21 01:33 | NUR ---
PT SLEEPING QUIETLY IN BED WITH VSS. AROUSABLE TO SHAKING, VERBAL STIMULI.
--- NOTE | 2019-02-21 03:20 | NUR ---
PT SLEEPING DEEPLY. AROUSABLE TO SHAKING/PAINFUL STIMULI. VSS.
--- NOTE | 2019-02-21 04:00 | NUR ---
AWOKE PT TO OFFER ELIMINATION NEEDS; PT DECLINED RR/URINAL AT THIS TIME.
--- NOTE | 2019-02-21 05:30 | NUR ---
PT PASSED ROAD TEST WITH STEADY GAIT. AMBULATES TO RR. PT SPEAKING IN CLEAR, FULL SENTENCES. NO COMPLAINTS AT THIS TIME. VSS.
[2019-02-21 05:50] VITALS: BP 100/42
--- NOTE | 2019-02-21 05:55 | NUR ---
CONTACTED MOTHERPETE TO COME J[employer] WE[employer] APPLICATION DEVELOPER PT.
== END 2019-02-21 05:50 | disposition home or self-care (01) ==
LOC: MED 19:48
DX: F10.239 Alcohol dependence with withdrawal, unspecified (principal); R11.10 Vomiting, unspecified; Z79.899 Other long term (current) drug therapy
CPT/HCPCS: 36415; 80053; 80305; 83690; 85025; 93005; 96361; 96365; 96366; 96375; 99284; A9153; G0480; G0482; J2060; J3411; J3490; J7030

== ENCOUNTER 2019-02-23 13:27 | Emergency (ER) | payer OTHER ==
[~2019-02-23] VITALS: Ht 180.3 cm; Wt 86.2 kg
--- NOTE | 2019-02-23 13:40 | NUR ---
Patient ambulated to bed 9. RN evaluating patient at bedside.
[2019-02-23 13:41] VITALS: BP 149/94
[2019-02-23] MEDS ORDERED: NACL 0.9% 1,000 ML IV ONE (14:05)
[2019-02-23] MEDS ORDERED: hydrOXYzine HCL 25 MG TAB PO ONE (14:05)
[2019-02-23] MEDS ORDERED: MECLIZINE 25 MG TAB PO ONE (14:05)
[2019-02-23] MEDS ORDERED: PROMETHAZINE 25 MG/ML VIAL IM ONE (14:05)
--- NOTE | 2019-02-23 14:46 | NUR ---
PT BIB MOM C/O ALCOHOL WITHDRAWLS. PT LAST DRINK 12 02/22, + FINE HAND TREMORS, + N/V, REPORTS HEADACHE AND ANXIETY. VSS. ER MD TO SEE PT MEDHX:DENIES RX:DENIES
[2019-02-23 16:32] LABS: BARBITURATE, URINE NEG. ng/ml (NEG <=200); BENZODIAZEPINE, URINE POS. ng/mL (NEG <=200); CANNABINOID, URINE NEG. ng/mL (NEG <=50); COCAINE, URINE NEG. ng/mL (NEG <=300); OPIATE, URINE NEG. ng/mL (NEG <=2000); PHENCYCLIDINE SCREEN,URINE NEG. ng/mL (NEG <=25)
--- NOTE | 2019-02-23 17:37 | NUR ---
PT AND PT'S MOTHER STATED THAT THEY ARE CONCERNED ABOUT PT BEING DISCHARGED. DR PURCELL MADE AWARE. PER DR PURCELL, PT CAN BENEFIT FROM [facility] AND OUTPATIENT OR INPATIENT REHAB IN [facility] OR [facility]. PT AND PT'S MOTHER MADE AWARE. DR PURCELL AT BEDSIDE TO SPEAK WITH PT AND PT'S MOTHER.
[2019-02-23 17:47] VITALS: BP 144/89
--- NOTE | 2019-02-23 17:47 | NUR ---
Patient discharged with v/s stable. Written and verbal after care instructions given and explained. Patient alert, oriented and verbalized understanding of instructions. Ambulatory with steady gait. All questions addressed prior to discharge. ID band removed. Patient advised to follow up with PMD. Rx of VISTARIL given. Patient educated on indication of medication including possible reaction and side effects. Opportunity to ask questions provided and answered.
== END 2019-02-23 17:47 | disposition home or self-care (01) ==
LOC: MED 13:27
DX: F10.20 Alcohol dependence, uncomplicated (principal); R11.2 Nausea with vomiting, unspecified; Z79.899 Other long term (current) drug therapy
CPT/HCPCS: 36415; 80305; 96360; 96361; 96372; 99283; G0482; J2550; J7030; J8597